=== PATIENT | male | born 1960 | race Caucasian/White ===

== ENCOUNTER 2018-09-02 03:27 | Inpatient (IN) | payer SELFPAY ==
[~2018-09-02] VITALS: Ht 175.3 cm; Wt 92.1 kg
[2018-09-02] MEDS ORDERED: CHOL10002 (03:41)
[2018-09-02] MEDS ORDERED: Budeprion Xl300 MG (03:41)
[2018-09-02] MEDS ORDERED: AMLO5 (03:41)
[2018-09-02] MEDS ORDERED: Voltaren100 GM (03:42)
[2018-09-02] MEDS ORDERED: Flonase 0.05% N16 GM (03:45)
[2018-09-02] MEDS ORDERED: LORA1 (03:46)
[2018-09-02] MEDS ORDERED: MECL12.5 (03:46)
[2018-09-02] MEDS ORDERED: OMEPRAZOLE20 MG (03:46)
[2018-09-02] MEDS ORDERED: PRAZ1 (03:46)
[2018-09-02] MEDS ORDERED: PRED10 (03:47)
[2018-09-02] MEDS ORDERED: TESTONE CI200 MG/1 M (03:47)
[2018-09-02] MEDS ORDERED: TRAZ100 (03:48)
[2018-09-02 07:29] LABS: Adenovirus F 40/41 Not Detected (NOT DETECT); Astrovirus Not Detected (NOT DETECT); Campylobacter Sp Detected (NOT DETECT); Cryptosporidium Not Detected (NOT DETECT); Cyclospora Cayetanensis Not Detected (NOT DETECT); E. Coli O157 Not Detected (NOT DETECT); Entamoeba Histolytica Not Detected (NOT DETECT); Enteroaggregative E. coli-EAEC Not Detected (NOT DETECT); Enteropathogenic E. coli-EPEC Not Detected (NOT DETECT); Enterotoxigenic E. coli-ETEC Not Detected (NOT DETECT); Giardia Lamblia Not Detected (NOT DETECT); Norovirus GI/GII Not Detected (NOT DETECT); Plesiomonas Shigelloides Not Detected (NOT DETECT); Rotavirus A Not Detected (NOT DETECT); Salmonella Sp Not Detected (NOT DETECT); Sapovirus Not Detected (NOT DETECT); Shiga Toxin-prod E. coli-STEC Not Detected (NOT DETECT); Shigella/Enteroin E. coli-EIEC Not Detected (NOT DETECT); Vibrio Cholerae Not Detected (NOT DETECT); Vibrio Sp Not Detected (NOT DETECT); Yersinia Enterocolitica Not Detected (NOT DETECT)
[2018-09-02] MEDS ORDERED: LORA1 PO (15:03)
[2018-09-02] MEDS ORDERED: ACET325 PO (15:05)
[2018-09-02] MEDS ORDERED: LEVO750 PO (15:06)
[2018-09-02] MEDS ORDERED: ONDA4ODT MM (15:07)
[2018-09-02] MEDS ORDERED: METR500 PO (15:09)
[2018-09-02] MEDS ORDERED: SACC250C PO (15:09)
[2018-09-02] MEDS ORDERED: ABAT250V (15:09)
--- NOTE | 2018-09-02 16:09 | NUR ---
PT DISCHARGED AT 1545 WITH TO TRANSPORT HOME. PT AOX4 AND INDEPENDENT. REPORTED MILD PAIN. NO NAUSEA NOTED. PT MEDICATIONS FA[place]ED TO [place] GOLD TEAM AND APPOINTMENT SCHEDULED FOR 09/09/18 @ 0900 AT THE [place]. ALL PERSONAL BELONGINGS TAKEN AND PT WALKED OUT WITH UP0N DISCHARGE.
== END 2018-09-02 16:13 | disposition home or self-care (01) | DRG 392 ==
LOC: ER 03:27 → ERHOLD 06:24 → MEDS 12:48
PROVIDERS: Emergency Medicine; ADMIT Internal Medicine
DX: K52.9 Noninfective gastroenteritis and colitis, unspecified (principal); E78.5 Hyperlipidemia, unspecified; I10 Essential (primary) hypertension; E03.9 Hypothyroidism, unspecified; F43.10 Post-traumatic stress disorder, unspecified; F32.9 Major depressive disorder, single episode, unspecified; R42 Dizziness and giddiness
CPT/HCPCS: 36415; 87507; 89055; 96361; 96365; 96366; 96367; 99285-25; J1956; J7030

== ENCOUNTER 2022-02-01 17:38 | Emergency (ER) | payer OTHER ==
[~2022-02-01] VITALS: Ht 175.3 cm; Wt 95.2 kg
[~2022-02-01 17:38] MED LIST: ABAT250V; ACET325 PO; AMLO5; Budeprion Xl300 MG; CHOL10002; Flonase 0.05% N16 GM; LEVO750 PO; LORA1; LORA1 PO; MECL12.5; METR500 PO; OMEPRAZOLE20 MG; ONDA4ODT MM; PRAZ1; PRED10; SACC250C PO; TESTONE CI200 MG/1 M; TRAZ100; Voltaren100 GM
[2022-02-01 18:40] LABS: BASOPHILS ABSOLUTE AUTO 0.03 K/mm3 (0.00-0.23); BASOPHILS PERCENT AUTO 0 % (0-2); EOSINOPHILS ABSOLUTE AUTO 0.08 K/mm3 (0.00-0.68); EOSINOPHILS PERCENT AUTO 1 % (0-6); Hematocrit 49.3 % (37.0-53.0); Hemoglobin 16.6 g/dL (13.5-17.5); IMMATURE GRAN ABSOLUTE AUTO 0.01 K/mm3 (0.00-0.10); IMMATURE GRAN PERCENT AUTO 0 % (0-1); LYMPHOCYTES ABSOLUTE AUTO 1.51 K/mm3 (0.84-5.20); LYMPHOCYTES PERCENT AUTO 21 % (21-46); MONOCYTES ABSOLUTE AUTO 0.78 K/mm3 (0.16-1.47); MONOCYTES PERCENT AUTO 11 % (4-13); Mean Corpuscular HGB 29.1 pg (26.0-34.0); Mean Corpuscular HGB Conc 33.7 g/dL (31.5-36.5); Mean Corpuscular Volume 87 fL (80-100); Mean Platelet Volume 9.2 fL (9.1-12.4); NEUTROPHILS PERCENT AUTO 67 % (41-73); Platelet Count 241 K/mm3 (150-400); RDW Coefficient Variation 12.5 % (11.7-14.2); RDW Standard Deviation 39.5 fL (35.1-46.3); White Blood Cell Count 7.31 K/mm3 (4.00-11.30)
[2022-02-01 19:03] LABS: Albumin, Blood 4.2 g/dL (3.4-5.0); Albumin/Globulin Ratio 1.3 (0.8-1.8); Bilirubin, Total 0.7 mg/dL (0.1-1.0); Calcium, Blood 9.4 mg/dL (8.5-10.1); Creatinine, Blood 1.25 mg/dL (0.60-1.20); Globulin, Blood 3.2 g/dL (2.2-4.0); Total Protein, Blood 7.4 g/dL (6.4-8.2)
[2022-02-01] MEDS ORDERED: BACLOFEN10 M4 PO (20:58)
[2022-02-01] MEDS ORDERED: METOPROLOL SUCC25 MG PO (20:58)
[2022-02-01] MEDS ORDERED: METHYLPHENIDATE30 M1 PO (20:58)
[2022-02-01] MEDS ORDERED: AMLODIPINE BESY10 MG PO (20:58)
[2022-02-01] MEDS ORDERED: OMEP20ER PO (21:00)
[2022-02-01] MEDS ORDERED: RISPERDAL PO (21:00)
[2022-02-01] MEDS ORDERED: SUMA25 PO (21:00)
[2022-02-01] MEDS ORDERED: TOPI50 PO (21:01)
[2022-02-01] MEDS ORDERED: DOXE50 PO (21:01)
[2022-02-01 22:41] LABS: Adenovirus F 40/41 Not Detected (NOT DETECT); Astrovirus Not Detected (NOT DETECT); Campylobacter Sp Not Detected (NOT DETECT); Cryptosporidium Not Detected (NOT DETECT); Cyclospora Cayetanensis Not Detected (NOT DETECT); E. Coli O157 Not Detected (NOT DETECT); Entamoeba Histolytica Not Detected (NOT DETECT); Enteroaggregative E. coli-EAEC Not Detected (NOT DETECT); Enteropathogenic E. coli-EPEC Not Detected (NOT DETECT); Enterotoxigenic E. coli-ETEC Not Detected (NOT DETECT); Giardia Lamblia Not Detected (NOT DETECT); Norovirus GI/GII Not Detected (NOT DETECT); Plesiomonas Shigelloides Not Detected (NOT DETECT); Rotavirus A Not Detected (NOT DETECT); Salmonella Sp Not Detected (NOT DETECT); Sapovirus Not Detected (NOT DETECT); Shiga Toxin-prod E. coli-STEC Not Detected (NOT DETECT); Shigella/Enteroin E. coli-EIEC Not Detected (NOT DETECT); Vibrio Cholerae Not Detected (NOT DETECT); Vibrio Sp Not Detected (NOT DETECT); Yersinia Enterocolitica Not Detected (NOT DETECT)
== END 2022-02-01 20:55 | disposition home or self-care (01) ==
LOC: ER 17:38
PROVIDERS: Emergency Medicine
DX: R19.7 Diarrhea, unspecified (principal); I10 Essential (primary) hypertension; Z88.8 Allergy status to other drugs, medicaments and biological substances; Z79.899 Other long term (current) drug therapy
CPT/HCPCS: 36415; 80053; 83690; 85025; 87507; J7030

== ENCOUNTER 2022-04-21 10:20 | Day surgery (SDC) | payer OTHER ==
[~2022-04-21] VITALS: Ht 175.3 cm; Wt 94.6 kg
[~2022-04-21 10:20] MED LIST changes: +AMLODIPINE BESY10 MG PO; +BACLOFEN10 M4 PO; +DOXE50 PO; +METHYLPHENIDATE30 M1 PO; +METOPROLOL SUCC25 MG PO; +OMEP20ER PO; +RISPERDAL PO; +SUMA25 PO; +TOPI50 PO
[2022-04-21] MEDS ORDERED: GEMF600 (10:34)
[2022-04-21] MEDS ORDERED: Atarax10 MG (10:35)
[2022-04-21] MEDS ORDERED: DEPO-TESTO200 MG/1 M (10:35)
[2022-04-21] MEDS ORDERED: ERGO400 (10:35)
[2022-04-21] MEDS ORDERED: FISH OIL 1,2001 EAC7 (10:36)
== END 2022-04-21 13:00 | disposition home or self-care (01) ==
LOC: ORSCSDS 10:20
PROVIDERS: Internal Medicine Gastroenterology
PROC: 0DBK8ZX Excision of Ascending Colon, Via Natural or Artificial Opening Endoscopic, Diagnostic (ICD-10-PCS; principal; 2022-04-21 11:30)
DX: K92.1 Melena (principal); R19.7 Diarrhea, unspecified; K64.8 Other hemorrhoids; I10 Essential (primary) hypertension; K21.9 Gastro-esophageal reflux disease without esophagitis; Z79.899 Other long term (current) drug therapy
CPT/HCPCS: 88305; J2704; J7120

== ENCOUNTER 2023-05-28 12:26 | Day surgery (SDC) | payer OTHER ==
[~2023-05-28] VITALS: Ht 175.3 cm; Wt 101.3 kg
[~2023-05-28 12:26] MED LIST changes: +DEPO-TESTO200 MG/1 M IM; +DOXE10 PO; -DOXE50 PO; +ERGO400; +FISH OIL 1,2001 EAC7; +GEMF600 PO; +HYDHCL25 PO; +RISP2 PO; -RISPERDAL PO; +TAMS.4ER PO
[2023-05-28] MEDS ORDERED: LEVSOD75 (13:08)
[2023-05-28 16:11] VITALS: BP 112/83
== END 2023-05-28 16:10 | disposition home or self-care (01) ==
LOC: ORSCSDS 12:26
PROVIDERS: Internal Medicine Gastroenterology
PROC: 0D757ZZ Dilation of Esophagus, Via Natural or Artificial Opening (ICD-10-PCS; principal; 2023-05-28 13:45)
PROC: 0DB58ZX Excision of Esophagus, Via Natural or Artificial Opening Endoscopic, Diagnostic (ICD-10-PCS; principal; 2023-05-28 13:45)
DX: R13.10 Dysphagia, unspecified (principal); K21.9 Gastro-esophageal reflux disease without esophagitis; I10 Essential (primary) hypertension; E78.5 Hyperlipidemia, unspecified; G47.33 Obstructive sleep apnea (adult) (pediatric); F41.9 Anxiety disorder, unspecified; F43.10 Post-traumatic stress disorder, unspecified; E03.9 Hypothyroidism, unspecified; Z79.899 Other long term (current) drug therapy
CPT/HCPCS: 88305; J2704; J7120